=== PATIENT | female | born 1945 | race Caucasian/White ===

== ENCOUNTER 2025-05-07 07:58 | Day surgery (SDC) | payer MEDICARE, BC ==
[2025-05-07] VITALS (9 sets, daily range): BP systolic 123–153; BP diastolic 55–69; PULSE 60–80; RESP 12–16; TEMP 97.3; O2SAT 34–100
[~2025-05-07] VITALS: Ht 160 cm; Wt 60.6 kg
[~2025-05-07 07:58] MED LIST: OXYB10TA30 PO; ROSU10TA72 PO; simethicone 40mg/0.6ml oral drops 15ml PO ONE
[2025-05-07] MEDS: ringers solution, lacted 1,000 ML IV SCH (09:02)
--- NOTE | 2025-05-07 09:26 | ELECTROCARDIOGRAPH REPORT ---
[facility] Test Date: 2025-05-07 Test Time: 09:24:07 Pat Name: ADRIANNE LYON Department: PRE/OP CARDIOLOGY Room: Gender: F Family Intervention Specialist: kike : [phone] Requested By: STEVE REEVES Order Number: [id number] Reading MD: Dr. MIMI Ramsey Measurements Intervals [place] Rate: 56 P: 51 [place]: 186 QRS: 54 QRSD: 112 T: 52 QT: 462 QTc: 446 Interpretive Statements Sinus bradycardia Borderline intraventricular conduction delay Electronically Signed On 05-07-2025 13:52:[address] MIMI Ramsey Please click the below link to view image of tracing.
[2025-05-07] MEDS ORDERED: MIDAZolam 1 MG/ML 5ML VIAL ONE (12:22)
[2025-05-07] MEDS ORDERED: fentaNYL/PF 50MCG/1 ML 2ML syringe ONE ×2 (12:22→12:38)
== END 2025-05-07 13:51 | disposition home or self-care (01) ==
LOC: GI LAB 07:58
PROVIDERS: ATTEND Internal Medicine Gastroenterology
DX: K59.09 Other constipation (principal); K57.30 Diverticulosis of large intestine without perforation or abscess without bleeding; R00.1 Bradycardia, unspecified; E78.5 Hyperlipidemia, unspecified; G47.30 Sleep apnea, unspecified; J45.909 Unspecified asthma, uncomplicated; M81.0 Age-related osteoporosis without current pathological fracture; Z79.899 Other long term (current) drug therapy; Z90.710 Acquired absence of both cervix and uterus; Z96.619 Presence of unspecified artificial shoulder joint
CPT/HCPCS: 45378; 93005; A4620; G0500; J2250; J3010; J7120; Z7512; 99152; 99153

== ENCOUNTER 2025-06-11 07:37 | Day surgery (SDC) | payer MEDICARE, BC ==
[~2025-06-11] VITALS: Ht 160 cm; Wt 59.9 kg
[2025-06-11] VITALS (7 sets, daily range): BP systolic 92–144; BP diastolic 38–59; PULSE 57–76; RESP 10–16; TEMP 97.7; O2SAT 95–100
[~2025-06-11 07:37] MED LIST changes: -ROSU10TA72 PO; +ROSU10TA98 PO; +ringers solution, lacted 1,000 ML IV SCH; -simethicone 40mg/0.6ml oral drops 15ml PO ONE
[2025-06-11] MEDS ORDERED: MIDAZolam 1 MG/ML 5ML VIAL ONE (10:56)
[2025-06-11] MEDS ORDERED: fentaNYL/PF 50MCG/1 ML 2ML syringe ONE (10:56)
--- NOTE | 2025-06-12 13:50 | PATHOLOGY REPORT ---
[facility] [address] [place] [address] SURGICAL PATHOLOGY REPORT CaseNumber: [id number] Surgeon:Pako Fregoso M.D. CLINICAL INFORMATION CLINICAL INFORMATION: High risk colon cancer surveillance. Personal history of colon polyp.s DIAGNOSIS DIAGNOSIS: POLYP, CECUM, BIOPSY - TUBULAR ADENOMA (0.1 CM) - NO HIGH-GRADE DYSPLASIA OR MALIGNANCY MICROSCOPIC DESCRIPTION MICROSCOPIC DESCRIPTION: Reviewed is a single H&E-stained slide showing serial sections and levels of a single polypoid fragment of colonic mucosa. There are areas involved by adenomatous changes that measure up to 0.1 cm in greatest dimension. There are no features of high-grade dysplasia or malignancy. GROSS DESCRIPTION GROSS DESCRIPTION: Received in a container of formalin labeled with the patient's name, number, and "cecum colon polyp" is a 0.2 cm piece of miller tissue. The specimen is entirely submitted as A1. The time at which the specimen was removed was 1127. The time at which the specimen was placed in formalin was 1128. Electronically signed by: Aravind Beebe M.D. 06/12/2025 1:16:00 PM
== END 2025-06-11 12:35 | disposition home or self-care (01) ==
LOC: GI LAB 07:37
PROVIDERS: ATTEND Internal Medicine Gastroenterology
DX: Z12.11 Encounter for screening for malignant neoplasm of colon (principal); D12.0 Benign neoplasm of cecum; K64.8 Other hemorrhoids; K57.30 Diverticulosis of large intestine without perforation or abscess without bleeding; M81.0 Age-related osteoporosis without current pathological fracture; E78.5 Hyperlipidemia, unspecified; Z86.0100 Personal history of colon polyps, unspecified; Z79.899 Other long term (current) drug therapy; Z98.890 Other specified postprocedural states
CPT/HCPCS: 45380; 82948; 88305; A4620; J2250; J3010; J7120; Z7512; Z7610; 45385; 99152; 99153